=== PATIENT | male | born 1960 | race Caucasian/White ===

== ENCOUNTER 2017-12-19 13:51 | Outpatient (CLI) | payer OTHER ==
--- NOTE | 2017-12-19 15:16 | RAD ---
LEFT SHOULDER 3 VIEWS: Date: 12/19/17 HISTORY: Injury 7 years ago, recent exacerbation of pain in the left shoulder. FINDINGS/IMPRESSION: There are mild degenerative changes in the acromioclavicular joint. No fracture, dislocation, or bony destruction is identified. POS: [facility]
== END 2017-12-19 13:52 | disposition home or self-care (01) ==
LOC: SCSRAD 13:51
PROVIDERS: ATTEND Family Medicine
DX: M25.512 Pain in left shoulder (principal); M19.012 Primary osteoarthritis, left shoulder